=== PATIENT | male | born 1960 | race African-American/Black ===

== ENCOUNTER 2016-11-10 22:49 | Emergency (ER) | payer SELFPAY ==
[~2016-11-10] VITALS: Ht 165.1 cm; Wt 64.0 kg
[2016-11-10 23:11] LABS: GLUCOSE COMMENT 1 Doctor Notified; GLUCOSE,POINT OF CARE 76 MG/DL (70-110)
[2016-11-10 23:25] LABS: BASOPHILS # (AUTO) 0.06 K/uL (0.00-0.20); EOSINOPHILS # (AUTO) 0.55 K/uL (0.00-0.70); EOSINOPHILS % (AUTO) 9.85 % (1.0-6.0); HEMATOCRIT 40.4 % (41-53); HEMOGLOBIN 13.2 g/dL (13.5-17.5); LYMPHOCYTES # (AUTO) 2.2 K/uL (1.0-4.8); LYMPHOCYTES % (AUTO) 39.7 % (22.0-44.0); MEAN CORPUSCULAR HEMOGLOBIN 23.4 pg (26.0-34.0); MEAN CORPUSCULAR HGB CONC 32.6 G/dL (31.0-37.0); MEAN CORPUSCULAR VOLUME 72 fL (80-100); MONOCYTES # (AUTO) 0.7 K/uL (0.1-1.0); MONOCYTES % (AUTO) 11.7 % (2.0-9.0); NEUTROPHILS # (AUTO) 2.1 K/uL (1.8-7.7); NEUTROPHILS % (AUTO) 37.7 % (40.0-70.0); PLATELET COUNT (AUTO) 222 K/uL (150-450); RED BLOOD CELL COUNT(AUTO) 5.62 MIL/uL (4.50-5.90); WHITE BLOOD COUNT (AUTO) 5.6 K/uL (4.5-11.0)
[2016-11-10 23:33] LABS: ANION GAP 13 mmol/L (8-16); CALCIUM, TOTAL 8.7 mg/dL (8.8-10.5); CARBON DIOXIDE 27 mmol/L (22-29); CHLORIDE 108 mmol/L (98-107); CREATININE 0.85 mg/dL (0.60-1.30); GLOMERULAR FILTR. RATE CALC > 60 mL/min (>60); POTASSIUM 3.3 mmol/L (3.5-5.1); SODIUM SERUM 148 mmol/L (136-145); UREA NITROGEN, BLOOD 15 mg/dL (7-18)
[2016-11-10 23:38] LABS: ALANINE AMINOTRANSFERASE 49 U/L (12-78); ALBUMIN 3.7 g/dL (3.4-5.0); ASPARTATE AMINOTRANSFERASE 63 U/L (15-37); BILIRUBIN,TOTAL 0.4 mg/dL (0.1-1.0); TOTAL PROTEIN, SERUM 7.3 g/dL (6.4-8.2)
[2016-11-10 23:45] LABS: RBC MORPHOLOGY COMMENT ABNORMAL RBC MORPH
[2016-11-11 06:11] VITALS: BP 109/64
== END 2016-11-11 06:13 | disposition home or self-care (01) ==
LOC: EDBD 22:56 → EMS 22:56
DX: F10.129 Alcohol abuse with intoxication, unspecified (principal); Y90.8 Blood alcohol level of 240 mg/100 ml or more
CPT/HCPCS: 36415; 51702; 80053; 82962; 85025; 99284; G0480